=== PATIENT | female | born 1985 | race African-American/Black ===

== ENCOUNTER 2016-09-11 12:05 | Emergency (ER) | payer BC | END 2016-09-11 17:19 | disposition home or self-care (01) | LOC: ER 12:05 | DX: S29.012A Strain of muscle and tendon of back wall of thorax, initial encounter (principal); S39.012A Strain of muscle, fascia and tendon of lower back, initial encounter; F17.200 Nicotine dependence, unspecified, uncomplicated; Z88.5 Allergy status to narcotic agent; Z88.6 Allergy status to analgesic agent; V89.2XXA Person injured in unspecified motor-vehicle accident, traffic, initial encounter | CPT/HCPCS: 72072; 72100; 99283 ==